=== PATIENT | male | born 1930 | race Caucasian/White ===

== ENCOUNTER 2017-01-25 17:15 | Inpatient (IN) | payer MEDICARE ==
[2017-01-25 16:15] LABS: BASO % 0.5 % (0-2); EOS % 5.5 % (0-7); EOSINOPHIL ABSOLUTE COUNT 0.4 tho/cmm (0.0-0.7); HCT-HEMATOCRIT 34.7 % (36.0-53.5); HGB-HEMOGLOBIN 11.3 gm/dl (13.5-17.0); IMMATURE GRANULOCYTES ABSOLUTE 0.02 tho/cmm (0-0.03); IMMATURE GRANULOCYTES PERCENT 0.3 % (0-0.3); LYMPH % 19.9 % (20-45); LYMPH ABSOLUTE COUNT 1.5 tho/cmm (0.8-4.5); MCH (MEAN CORPUSCULAR HGB) 29.1 pg (28.0-32.0); MCHC MEAN CORPUSCULAR HGB CONC 32.6 % (32.0-36.0); MCV (MEAN CELL VOLUME) 89.4 fl (82.0-96.0); MEAN PLATELET VOLUME 9.2 cmc (9.4-12.4); MONO % 9.7 % (0-12); MONOCYTE ABSOLUTE COUNT 0.7 tho/cmm (0.0-1.2); NEUTROPHIL ABSOLUTE COUNT 4.7 tho/cmm (1.6-8.0); NEUTROPHIL-AUTOMATED 4.7 tho/cmm (1.6-8.0); NEUTROPHILS % 64.1 % (40-80); PLATELET COUNT 227 tho/cmm (150-450); RED BLOOD COUNT 3.88 mil/cmm (4.40-5.70); RED CELL DISTRIBUTION WIDTH 14.9 % (12.4-16.4); WHITE BLOOD COUNT 7.3 tho/cmm (4.0-10.0)
[2017-01-25 16:33] LABS: ALB/GLOB RATIO 0.9 (0.8-2.0); ALBUMIN 3.2 g/dl (3.5-5.0); ALKALINE PHOSPHATASE 105 U/L (33-138); ALT/SGPT 16 U/L (12-78); ANION GAP 11 mmol/L (0-20); AST/SGOT 17 U/L (10-40); BILIRUBIN,TOTAL 0.2 mg/dl (0.0-1.5); BLOOD UREA NITROGEN 19 mg/dl (6-24); C-REACTIVE PROTEIN 0.5 mg/dl (0-0.9); CALCIUM 8.6 mg/dl (8.5-10.5); CARBON DIOXIDE-VENOUS 28 mmol/L (22-32); CHLORIDE 109 mmol/l (96-110); GLUCOSE 109 mg/dL (70-110); POTASSIUM 3.7 mmol/L (3.7-5.1); SODIUM 144 mmol/L (135-145); eGFR VALUE FOR BLACK 63 mL/Min
[2017-01-25 17:05] LABS: URINE BILIRUBIN NEGATIVE (NEG); URINE BLOOD NEGATIVE (NEG); URINE GLUCOSE (UA) NEGATIVE (NEG); URINE KETONE NEGATIVE (NEG); URINE LEUKOCYTE ESTERASE POSITIVE (NEG); URINE NITRITE NEGATIVE (NEG); URINE PROTEIN NEGATIVE (NEG); URINE SPECIFIC GRAVITY 1.025 (1.003-1.030)
[2017-01-25 17:07] LABS: URINE APPEARANCE CLEAR; URINE COLOR YELLOW
[2017-01-25 17:10] LABS: URINE EPITHELIAL CELLS 0-4 /[HPF] (0-10); URINE MUCUS 1+
[2017-01-25 17:11] LABS: URINE WBC 20-35 /[HPF] (0-5)
[~2017-01-25 17:15] MED LIST: ACETAMINOPHEN325 M2 PO; ADULT LOW DOSE81 M1 PO; AMOXICILLIN500 M1 PO; ARTIFICIAL SALIVA PO; ARTIFICIAL TEAR1512 EACH EYE; ASPIRIN EC325 M1 PO; ATROVENT15 ML; BACTROBAN22 G1 TP; BIOTENE MOIST44.3 ML MM; CALCITRIOL100 GM TP; CENTRUM COMPLE1 EAC1 PO; COLACE100 M1 PO; EUCERIN CREME120 G1 TP; FLOMAX0.4 M1 PO; FLONASE ALLERG9.9 ML; FLUOCINOLONE AC15 G3 EXT; FLUOCINONIDE15 G1 TP; FOLIC ACID1 M1 PO; FOSAMAX70 M1 PO; HYDROXYZINE HCL25 M1 PO; LIPITOR40 M1 PO; MICONAZOLE NITR10 GM TP; OMEPRAZOLE20 M3 PO; PREDNISONE10 M1 PO; PRILOSEC20 M1 PO; TALC TP; TYLENOL325 M2 PO; VIBRAMYCIN100 M1 PO; WHITE PETROLATUM5 G1 TP; ZOCOR80 M1 PO; ZYRTEC1010 PO; [UNRECOGNIZED DRUG - REMARK] TP
[2017-01-26 06:01] LABS: ALB/GLOB RATIO 0.9 (0.8-2.0); ALBUMIN 2.6 g/dl (3.5-5.0); ALKALINE PHOSPHATASE 87 U/L (33-138); ALT/SGPT 12 U/L (12-78); ANION GAP 11 mmol/L (0-20); AST/SGOT 13 U/L (10-40); BASO % 0.6 % (0-2); BILIRUBIN,TOTAL 0.3 mg/dl (0.0-1.5); BLOOD UREA NITROGEN 18 mg/dl (6-24); CALCIUM 8.2 mg/dl (8.5-10.5); CARBON DIOXIDE-VENOUS 28 mmol/L (22-32); CHLORIDE 109 mmol/l (96-110); CREATININE 1.12 mg/dl (0.60-1.30); EOS % 7.2 % (0-7); EOSINOPHIL ABSOLUTE COUNT 0.4 tho/cmm (0.0-0.7); GLUCOSE 100 mg/dL (70-110); HCT-HEMATOCRIT 31.7 % (36.0-53.5); IMMATURE GRANULOCYTES ABSOLUTE 0.01 tho/cmm (0-0.03); IMMATURE GRANULOCYTES PERCENT 0.2 % (0-0.3); LYMPH % 22.3 % (20-45); LYMPH ABSOLUTE COUNT 1.1 tho/cmm (0.8-4.5); MCH (MEAN CORPUSCULAR HGB) 28.3 pg (28.0-32.0); MCHC MEAN CORPUSCULAR HGB CONC 31.5 % (32.0-36.0); MCV (MEAN CELL VOLUME) 89.8 fl (82.0-96.0); MEAN PLATELET VOLUME 9.4 cmc (9.4-12.4); MONO % 10.2 % (0-12); MONOCYTE ABSOLUTE COUNT 0.5 tho/cmm (0.0-1.2); NEUTROPHIL ABSOLUTE COUNT 3.1 tho/cmm (1.6-8.0); NEUTROPHIL-AUTOMATED 3.1 tho/cmm (1.6-8.0); NEUTROPHILS % 59.5 % (40-80); PLATELET COUNT 205 tho/cmm (150-450); POTASSIUM 3.9 mmol/L (3.7-5.1); RED BLOOD COUNT 3.53 mil/cmm (4.40-5.70); SODIUM 144 mmol/L (135-145); WHITE BLOOD COUNT 5.1 tho/cmm (4.0-10.0); eGFR VALUE FOR BLACK 69 mL/Min
[2017-01-26] MEDS ORDERED: LEVAQUIN500 M1 PO (18:51)
[2017-05-24] MEDS ORDERED: B-12500 MC1 PO (07:57)
[2017-05-24] MEDS ORDERED: COLACE100 M1 PO (07:58)
== END 2017-01-26 19:24 | DRG 607 ==
LOC: EDMED 17:15 → EMR2 18:36 → CAR1 19:03
PROVIDERS: Nurse Practitioner Family; ADMIT Internal Medicine
DX: L27.0 Generalized skin eruption due to drugs and medicaments taken internally (principal); L03.115 Cellulitis of right lower limb; H34.9 Unspecified retinal vascular occlusion; K21.9 Gastro-esophageal reflux disease without esophagitis; I12.9 Hypertensive chronic kidney disease with stage 1 through stage 4 chronic kidney disease, or unspecified chronic kidney disease; N18.9 Chronic kidney disease, unspecified; E78.5 Hyperlipidemia, unspecified; N40.0 Benign prostatic hyperplasia without lower urinary tract symptoms; E53.8 Deficiency of other specified B group vitamins; I65.21 Occlusion and stenosis of right carotid artery; Z87.891 Personal history of nicotine dependence; Z86.14 Personal history of Methicillin resistant Staphylococcus aureus infection; T36.4X5A Adverse effect of tetracyclines, initial encounter; Y92.009 Unspecified place in unspecified non-institutional (private) residence as the place of occurrence of the external cause; Z88.1 Allergy status to other antibiotic agents; I87.2 Venous insufficiency (chronic) (peripheral); Z88.2 Allergy status to sulfonamides; Z86.73 Personal history of transient ischemic attack (TIA), and cerebral infarction without residual deficits; Z79.82 Long term (current) use of aspirin
CPT/HCPCS: G8978-GP-CI; G8979-GP-CI; G8980-GP-CI; G8987-GO-CI; G8988-GO-CI; G8989-GO-CI; J2543; J7030

== ENCOUNTER 2017-04-25 13:12 | Emergency (ER) | payer OTHER, MEDICARE ==
[~2017-04-25 13:12] MED LIST changes: +LEVAQUIN500 M1 PO
[2017-04-25 14:14] LABS: BASO % 0.2 % (0-2); EOS % 0.6 % (0-7); EOSINOPHIL ABSOLUTE COUNT 0.1 tho/cmm (0.0-0.7); IMMATURE GRANULOCYTES ABSOLUTE 0.03 tho/cmm (0-0.03); IMMATURE GRANULOCYTES PERCENT 0.3 % (0-0.3); LYMPH % 14.5 % (20-45); LYMPH ABSOLUTE COUNT 1.4 tho/cmm (0.8-4.5); MCH (MEAN CORPUSCULAR HGB) 28.9 pg (28.0-32.0); MCHC MEAN CORPUSCULAR HGB CONC 32.5 % (32.0-36.0); MCV (MEAN CELL VOLUME) 88.9 fl (82.0-96.0); MEAN PLATELET VOLUME 9.1 cmc (9.4-12.4); MONO % 6.5 % (0-12); MONOCYTE ABSOLUTE COUNT 0.6 tho/cmm (0.0-1.2); NEUTROPHIL ABSOLUTE COUNT 7.3 tho/cmm (1.6-8.0); NEUTROPHIL-AUTOMATED 7.3 tho/cmm (1.6-8.0); NEUTROPHILS % 77.9 % (40-80); PLATELET COUNT 175 tho/cmm (150-450); RED CELL DISTRIBUTION WIDTH 14.9 % (12.4-16.4); WHITE BLOOD COUNT 9.4 tho/cmm (4.0-10.0)
[2017-04-25 14:26] LABS: ANION GAP 12 mmol/L (0-20); BLOOD UREA NITROGEN 28 mg/dl (6-24); CALCIUM 9.3 mg/dl (8.5-10.5); CARBON DIOXIDE-VENOUS 29 mmol/L (22-32); CHLORIDE 104 mmol/l (96-110); CREATININE 1.32 mg/dl (0.60-1.30); GLUCOSE 100 mg/dL (70-110); POTASSIUM 5.4 mmol/L (3.7-5.1); SODIUM 140 mmol/L (135-145); eGFR VALUE FOR BLACK 56 mL/Min
[2017-05-24] MEDS ORDERED: B-12500 MC1 PO (07:57)
[2017-05-24] MEDS ORDERED: COLACE100 M1 PO (07:58)
== END 2017-04-25 16:45 ==
LOC: EDMED 13:12
PROVIDERS: Emergency Medicine
DX: Z04.3 Encounter for examination and observation following other accident (principal); I10 Essential (primary) hypertension; E78.5 Hyperlipidemia, unspecified; K21.9 Gastro-esophageal reflux disease without esophagitis; Z87.891 Personal history of nicotine dependence; W18.30XA Fall on same level, unspecified, initial encounter